=== PATIENT | male | born 1995 | race Caucasian/White ===

== ENCOUNTER 2016-10-29 19:24 | Emergency (ER) | payer MEDICAID, OTHER ==
[~2016-10-29] VITALS: Ht 170.2 cm; Wt 72.7 kg
[2016-10-29 19:29] VITALS: BP 138/82; PULSE 64; RESP 18; O2SAT 97
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
[2016-10-29] MEDS ORDERED: CeFAZolin Inj 2 GM in IV Premix 1 EACH IV ONE (21:50)
[2016-10-29] MEDS ORDERED: HYDROcodone-APAP 5-325 mg Tablet PO ONE (21:50)
[2016-10-29] MEDS ORDERED: Ondansetron 8 mg ODT Tablet PO ONE (22:35)
[2016-10-29] MEDS ORDERED: _HYDROcodone/APAP 5-325 mg Tablet PO PRN (22:35)
[2016-10-29] MEDS ORDERED: _Ondansetron ODT 4 mg Tablet PO PRN (22:35)
[2016-10-29] MEDS ORDERED: Ondansetron 2 mg/mL 2 mL Inj IVPUSH ONE (22:40)
--- NOTE | 2016-10-29 22:58 | DRSVH ---
PROCEDURE: X-RAY RIGHT FOREARM, TWO VIEWS ([id number]) INDICATIONS: cut arm on broken window TECHNIQUE: 2 views of the forearm were acquired. COMPARISON: None. FINDINGS: Bones: No fractures or dislocations. No suspicious bony lesions. Soft tissues: There is a soft tissue laceration along the volar aspect of the mid to distal forearm measuring up to approximately 2.7 cm in depth with associated linear soft tissue gas in the deep soft tissues. IMPRESSION: 1. No fractures. 2. Volar soft tissue laceration with associated linear gas tracking in the deep soft tissues. Dictated by: Yang Mcqueen M.D. on 10/29/2016 at 22:55 Approved by: Yang Mcqueen M.D. on 10/29/2016 at 22:57
[2016-10-29 23:14] VITALS: BP 138/82; PULSE 64; RESP 18; O2SAT 97
[2016-10-30] MEDS ORDERED: _Cephalexin 500 mg Capsule PO SCH (08:30)
[2016-10-30] MEDS ORDERED: HYDR-3825 PO (14:19)
== END 2016-10-29 23:15 | disposition home or self-care (01) ==
LOC: SED 19:24
DX: S56.221A Laceration of other flexor muscle, fascia and tendon at forearm level, right arm, initial encounter (principal); W22.8XXA Striking against or struck by other objects, initial encounter; Y93.89 Activity, other specified; Y92.89 Other specified places as the place of occurrence of the external cause; Y99.8 Other external cause status
CPT/HCPCS: 12005; 73090; 96365; 96375; 99285; J0690; J1885; J2405

== ENCOUNTER 2016-10-31 13:11 | Day surgery (SDC) | payer SELFPAY ==
[2016-10-31] VITALS (7 sets, daily range): BP systolic 119–134; BP diastolic 65–87; PULSE 46–72; RESP 12–18; O2SAT 98–100
[~2016-10-31] VITALS: Ht 170.2 cm; Wt 73.6 kg
[~2016-10-31 13:11] MED LIST: CeFAZolin Inj 2 GM in IV Premix 1 EACH IV ONE; HYDR-3825 PO
[2016-10-31] MEDS ORDERED: Propofol 10,000 mCg/mL 20 mL Inj ONE (13:12)
[2016-10-31] MEDS ORDERED: Ondansetron 2 mg/mL 2 mL Inj ONE (13:12)
[2016-10-31] MEDS ORDERED: fentaNYL-PF 50 mCg/mL 2 mL Inj ONE (13:12)
[2016-10-31] MEDS ORDERED: Lidocaine PF 1% 30 mL Inj ONE (13:12)
[2016-10-31] MEDS: Lactated Ringer's 1,000 ML IV SCH ×2 (13:38→15:26)
[2016-10-31] MEDS ORDERED: UNKNOWN ABX PO (13:50)
[2016-10-31] MEDS ORDERED: CeFAZolin Inj 2 gm / 50mL D5W IV ONE (13:51)
--- NOTE | 2016-10-31 15:13 | PCM.HPANE ---
Patient Data Date of Service: Oct 31, 2016 Surgeon Admitting Provider: Attending Provider:Lázaro Santiago DO Primary Care Physician:Rosalba Other Provider:Ankit Zapata Anesthesia Reason for Visit Right Forearm Open Wound, Tendon Laceration Ht/WT & BMI Height (Feet): 5 Height (Inches): 7.00 Weight (Kilograms): 73.600 Body Mass Index 25.00 Allergies Coded Allergies: No Known Allergies (Verified Allergy, Unknown, 10/29/16) Past Anesthesia History Anesthesia History: Denies:: Abnormal Airway, Anesthesia Reactions (no prior surgery), Difficult Intubation, Fam Anesthesia Reaction Diabetes History Hx Diabetes?: No MRSA MRSA: No Medications Hypertension Medication: No Home Meds Incl Beta Toni: No Reported Medications [Unknown Abx] No Conflict Check Po Tid 10/31/16 Hydrocodone-Acetaminophen 7.5-325 mg 1 Each Tablet1 Tablet PO Q4H PRN For Pain Ref 0 10/30/16 History History of ENT Problems?: No HEENT History: Denies:: Abnormal Airway Cataracts Difficult Intubation Dysphagia Glaucoma Hearing Problem Sinus Problem TMJ Denture Type: None Teeth Condition: Within Normal Limits Hx of Heart Problems?: No Cardiovascular History: Denies:: AICD Abdominal Aortic Aneurism Atrial Fibrillation Congestive Heart Failure Edema Heart Murmur Hypertension Irregular Heartbeat Pacemaker Peripheral Vascular Hx of Respiratory Problem?: No Respiratory History: Denies:: Asthma COPD Emphysema Oxygen Administration Pneumonia Tuberculosis Use of C-PAP Machine Use of Inhalers / NEBS Hx Neurologic Problems?: No Neurological History: Denies:: CVA Multiple Sclerosis Parkinson's Disease Seizures Hx of GI Problems?: No Hx of Problems?: No Genitourinary History: Denies:: Kidney Stones Urinary Tract Infection Male Hx: Denies:: Prostate Problems Skin History: Positive for:: History Skin Disorders? (current right arm laceration) Denies:: Pressure Ulcers Hx Musculoskeletal Problems?: Yes Musculoskeletal History: Positive for:: Musculoskeletal Trauma (right forearm laceration current problem- doi 10/29/16) Denies:: Back Injury Fibromyalgia Joint Replacement Myasthenia Gravis Osteoarthritis Systemic Lupus Hx of Psycho/Social Problems?: No Psycho Social History: Denies:: Anxiety Hx Depression Hx Surgeries?: No Hx Any Other Health Problems?: Yes Other History: Denies:: Cancer Thyroid Disease History Blood Transfusions: Positive for:: Accept Blood Products? Denies:: Blood Transfusions Hx Diabetes: No Hx Alcohol Use: YesAlcoholic Drinks Per Day: 2x monthlyHx Substance Use: Yes (marijuana randomly) Smoking Status: Unknown if Ever Smoker Have You Smoked inLast 12 mo: No Stop/Bang Treated for Sleep Apnea?: No Do You Have a CPAP Machine?: No S-Snoring: Do You Snore Loudly: No T-Tired: feel tired, fatigued: No O-Obsered: Observed not breath: No P-Blood Pressure: treated: No B- Body Mass Index > 35 kg/m2: No A- Age over 50: No N- Neck Large Circumference: No G- Gender Male: Yes JUAN ANTONIO Total Score: 1 JUAN ANTONIO Risk Assessment: Low Risk, <3 Yes Risk Assessment Category Category 1A: Patient has history of documented sleep apnea, and HAS NOT received any narcotic, sedative or anesthesia administration during this stay. Category 1B: Patient has history of documented sleep apnea, and HAS received any narcotic , sedative or anesthesia administration during this stay Category 2: Patient has SUSPECTED Obstructive Sleep Apnea, and HAS received any narcotic , sedative or anesthesia administration during this stay. Category 3: Patient has SUSPECTED Obstructive Sleep Apnea and HAS NOT received narcotic, sedative or anesthesia administration during this stay. Category 4: Outpatient in Procedural Areas with known sleep apnea or who screen positive for High Risk via the STOP/BANG questionnaire. Exam Exam Vital Signs Vital Signs Date Time Temp Pulse Resp B/P Pulse Ox O2 Delivery O2 Flow Rate FiO2 10/31/16 13:35 36.6 53 18 126/65 99 Room Air General Appearance: Alert, Oriented X3, Cooperative HEENT/AIRWAY: MP 2, Neck Movement (Full), Mouth Opening (Wide) Lungs: Clear to Auscultation, Normal Air Movement Heart: Regular Rate/Rhythm, Normal S1, Normal S2 Meds/Labs/Diagnostics Admission Meds Current Medications Lactated Ringer's (Lr) 1,000 ml @ 80 mls/hr [id number] IV Last administered on t 13:38; Start 10/31/16 at 06:00 Plan Impression Patient chart reviewed, patient interviewed and anesthestic plan with risks, benefits, and alternatives discussed, and informed consent obtained. NPO per Anesth. Guidelines: Yes ASA Physical Status: ASA1 Normal Healthy Anesthetic Plan: GA Bene/Risks/Altern/Consents: Yes HP Complete Prior to Induction: Yes Orlando Suggs MD Oct 31, 2016 14:17
[2016-10-31] MEDS ORDERED: HYDROcodone-APAP 7.5-325 mg Tablet PO PRN (15:15)
[2016-10-31] MEDS ORDERED: Lidocaine 1%-Epi 1:100,000 20 mL Inj INFILTRATE ONE (15:55)
[2016-10-31] MEDS ORDERED: Lidocaine 1%/Epi 1:100,000 30 mL MDV INFILTRATE ONE (15:55)
[2016-10-31] MEDS ORDERED: Lactated Ringer's 500 ML IV PRN (16:02)
[2016-10-31] MEDS ORDERED: Lactated Ringer's 1,000 ML IV SCH (16:02)
[2016-10-31] MEDS ORDERED: Phenylephrine 10,000 mCg/mL Inj IVPUSH PRN (16:05)
[2016-10-31] MEDS ORDERED: Atropine 0.4 mg/mL Inj IVPUSH PRN (16:05)
[2016-10-31] MEDS ORDERED: MetoCLOpramide 5 mg/mL 2 mL Inj IVPUSH PRN (16:05)
[2016-10-31] MEDS ORDERED: Dexamethasone 4 mg/mL Inj IVPUSH PRN (16:05)
[2016-10-31] MEDS ORDERED: Ondansetron 2 mg/mL 2 mL Inj IVPUSH PRN (16:05)
[2016-10-31] MEDS ORDERED: Labetalol 5 mg/mL 4 mL Inj IV PRN (16:05)
[2016-10-31] MEDS ORDERED: hydrALAZINE 20 mg/mL Inj IVPUSH PRN (16:05)
[2016-10-31] MEDS ORDERED: fentaNYL-PF 50 mCg/mL 2 mL Inj IVPUSH PRN (16:05)
[2016-10-31] MEDS ORDERED: EPHEDrine Sulfate 50 mg/mL Inj IVPUSH PRN (16:05)
[2016-10-31] MEDS ORDERED: HYDROmorphone 1 mg/mL Inj IVPUSH PRN (16:05)
--- NOTE | 2016-10-31 17:29 | PCM.ANEP1 ---
Post Anesthesia PACU Phase 1 Assessment Date of Service: Oct 31, 2016 Vital Signs Vital Signs Date Time Temp Pulse Resp B/P Pulse Ox O2 Delivery O2 Flow Rate FiO2 10/31/16 17:24 37.1 52 12 119/77 99 Simple Mask 8 10/31/16 13:35 36.6 53 18 126/65 99 Room Air Level of Alertness: Sleepy, easy to arouse GONSALES's with Equal Strength: Yes Pain: No Nausea or Vomiting: No CV Function & Hydration Stable: Yes Airway Device: Oxygen Delivery: Simple Mask Lungs: Normal Air Movement PACU Phase 2 Assessment Complications: No Follow up Care: No Patient Instructions Provided: N/A Orlando Suggs MD Oct 31, 2016 17:29
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
== END 2016-10-31 23:59 | disposition home or self-care (01) ==
LOC: SAS 13:11
PROVIDERS: ATTEND Orthopaedic Surgery
DX: S56.221A Laceration of other flexor muscle, fascia and tendon at forearm level, right arm, initial encounter (principal); S56.125A Laceration of flexor muscle, fascia and tendon of right ring finger at forearm level, initial encounter; S56.127A Laceration of flexor muscle, fascia and tendon of right little finger at forearm level, initial encounter; S56.121A Laceration of flexor muscle, fascia and tendon of right index finger at forearm level, initial encounter; X78.0XXA Intentional self-harm by sharp glass, initial encounter; Y93.9 Activity, unspecified; Y92.9 Unspecified place or not applicable; Y99.8 Other external cause status; F12.90 Cannabis use, unspecified, uncomplicated
CPT/HCPCS: 25260; J0690; J7120